=== PATIENT | female | born 1960 | race Caucasian/White ===

== ENCOUNTER 2020-04-29 10:35 | Observation (INO) | payer MEDICAID, SELFPAY ==
[~2020-04-29] VITALS: Ht 160 cm; Wt 81.6 kg
[2020-04-29 10:38] VITALS: BP 134/76
--- NOTE | 2020-04-29 10:43 | NUR ---
Patient ambulated to bed 4. RN evaluating patient at bedside.
--- NOTE | 2020-04-29 10:50 | NUR ---
60 Y/O F C/C RIGHT GROIN PAIN RADIATING TO THE RLE X 0300 HOURS, 10/10 PAIN, PRESSURE SENSATION, NOTHING ALLEVIATES PAIN. DENIES TRAUMA,INJURY. PT PRESENTS WITH RLE SWELLING,WARM TO TOUCH, EUPNIC,AMBULATORY,A/OX4. PER PT NO PREVIOUS HX OF BLOOD CLOTS,OR PREVIOUS SWELLING ON RLE. CMS/ROM WNL ON RLE. NKA. NO HX. NO RX. NO NVD. SIDE RAIL X1.
--- NOTE | 2020-04-29 10:54 | NUR ---
Dr. De Santiago is evaluating the patient at bedside.
--- NOTE | 2020-04-29 11:20 | NUR ---
US AT BEDSIDE
[2020-04-29 11:22] LABS: BASOPHILS # (AUTO) 0.1 K/uL (0.00-0.22); BASOPHILS % (AUTO) 0.7 % (0.0-2.0); EOSINOPHILS # (AUTO) 0.2 K/uL (0-0.4); EOSINOPHILS % (AUTO) 3.1 % (0.0-4.0); HEMATOCRIT 43.1 % (36-48); HEMOGLOBIN 14.7 g/dL (12.0-16.0); LYMPHOCYTES # (AUTO) 1.8 K/uL (2.5-16.5); LYMPHOCYTES % (AUTO) 23.8 % (20.5-51.1); MEAN CORPUSCULAR HEMOGLOBIN 30 pg (27-31); MEAN CORPUSCULAR HGB CONC 34 g/dL (33-37); MEAN CORPUSCULAR VOLUME 88.1 fL (80-94); MONOCYTES # (AUTO) 0.5 K/uL (0.8-1.0); MONOCYTES % (AUTO) 6.2 % (1.7-9.3); NEUTROPHILS # (AUTO) 5.1 K/uL (1.8-7.7); NEUTROPHILS % (AUTO) 66.2 % (42.2-75.2); PLATELET COUNT (AUTO) 186 K/uL (140-450); RED CELL DISTRIBUTION WIDTH 13.9 % (11.6-13.7); WHITE BLOOD COUNT (AUTO) 7.7 K/uL (4.8-10.8)
[2020-04-29 11:36] LABS: PROTHROMBIN TIME 10.4 secs (10.8-13.4)
[2020-04-29 11:38] LABS: ALBUMIN 3.8 g/dL (3.4-5.0); ANION GAP 13.2 (8-16); CARBON DIOXIDE 23.7 mmol/L (21-32); CREATININE 0.8 mg/dL (0.6-1.3); POTASSIUM 3.9 mmol/L (3.5-5.1); TOTAL BILIRUBIN 0.4 mg/dL (0.0-1.0)
--- NOTE | 2020-04-29 11:44 | NUR ---
PT RESTING IN BED, SIDE RAIL X1
[2020-04-29] MEDS ORDERED: NACL 0.9% 1,000 ML IV ONE (12:10)
[2020-04-29] MEDS ORDERED: ENOXAPARIN 100 MG/ML SYR SUBQ ONE (12:10)
--- NOTE | 2020-04-29 12:33 | NUR ---
ADDIE GUNN SWAB DONE , TAKEN TO LAB
[2020-04-29] MEDS: NACL 0.9% 1,000 ML IV SCH (13:41)
[2020-04-29] MEDS ORDERED: ACETAMINOPHEN 325 MG TAB PO PRN (13:45)
[2020-04-29] MEDS ORDERED: HYDROcodone/APAP 5/325 MG 1 TAB TAB PO PRN (13:45)
[2020-04-29] MEDS ORDERED: ONDANSETRON 4 MG/2 ML VIAL IVP PRN (13:45)
[2020-04-29] MEDS ORDERED: MORPHINE SULFATE 4 MG/ML SYR IVP PRN (13:45)
--- NOTE | 2020-04-29 14:50 | NUR ---
SOL EDWARDS - DAUGHTER PHONE [phone]
--- NOTE | 2020-04-29 16:37 | NUR ---
DAUGHTER NOTIFIED OF PT STATUS, PER PT REQUEST
[2020-04-29 16:50] VITALS: BP 118/66
--- NOTE | 2020-04-29 16:50 | NUR ---
TO ADMITTED TO M/S FROM ER VIA [facility]. RECEIVED REPORT FROM CURTIS TAYLOR. BELONGINGS WITH PATIENT.
--- NOTE | 2020-04-29 16:56 | NUR ---
Patient will be admitted to care of NEELA. Admited to MS. Will go to room 107B. Belongings list completed. Report to EBONI ACEVEDO.
--- NOTE | 2020-04-29 18:34 | NUR ---
VSS, AFEBRILE, O2 SAT >92% ON RA. C/O PAIN X1, BUT PT REFUSES TO TAKE AVAILABLE PAIN MEDICATION. PT STATES REPOSITIONING AND ELEVATION ASSISTS WITH PAIN. LABS AND I/O MONITORED. PT CONTINUES ON IV FLUID WITH NO ADVERSE REACTIONS NOTED AND/OR REPORTED. SPOKE WITH PT'S DAUGHTER (SOL), RE: PT'S STATUS. ALL NEEDS MET SINCE ADMIT. PERSONAL BELONGINGS, BEDSIDE TABLE, CALL LIGHT WITHIN REACH. WILL CONTINUE TO MONITOR.
--- NOTE | 2020-04-29 19:30 | NUR ---
Patient's Plan of Care was discussed and reviewed with PROGRAM ASSOCIATE:
--- NOTE | 2020-04-29 19:30 | NUR ---
RECD. RESTING IN BED, AWAKE, A/OX4, RESPIRATION EVEN AND UNLABORED. IV OF NS AT 80 ML/HR INFUSING, RIGHT HAND G22. RIGHT LEG ON A PILLOW. PLEASANT AND CALM. PLAN OF CARE FOR THE SHIFT DISCUSSED. VERBALIZED UNDERSTANDING. DENIES PAIN 0/10.
[2020-04-29] MEDS: APIXABAN 2.5 MG TAB PO SCH (21:26)
--- NOTE | 2020-04-29 21:26 | NUR ---
WATCHING TV. DUE PO MEDICATION GIVEN.
--- NOTE | 2020-04-29 23:15 | NUR ---
IV INFILTRATED, NEW IV LINE INSERTED LEFT HAND G22.
[2020-04-30] VITALS: BP 120/59
--- NOTE | 2020-04-30 01:00 | NUR ---
SLEEPING COMFORTABLY IN BED.
[2020-04-30] MEDS: NACL 0.9% 1,000 ML IV SCH ×2 (02:43→14:41)
--- NOTE | 2020-04-30 03:00 | NUR ---
AMBULATLED TO BR TO VOID, BACK TO BED AFTER VOIDING AND BACK TO SLEEP.
[2020-04-30 06:22] LABS: BASOPHILS % (AUTO) 0.6 % (0.0-2.0); EOSINOPHILS # (AUTO) 0.5 K/uL (0-0.4); EOSINOPHILS % (AUTO) 8.7 % (0.0-4.0); HEMATOCRIT 41.2 % (36-48); LYMPHOCYTES # (AUTO) 2.6 K/uL (2.5-16.5); LYMPHOCYTES % (AUTO) 42.8 % (20.5-51.1); MEAN CORPUSCULAR HEMOGLOBIN 30 pg (27-31); MEAN CORPUSCULAR HGB CONC 34 g/dL (33-37); MEAN CORPUSCULAR VOLUME 89.3 fL (80-94); MONOCYTES # (AUTO) 0.4 K/uL (0.8-1.0); NEUTROPHILS # (AUTO) 2.6 K/uL (1.8-7.7); NEUTROPHILS % (AUTO) 41.9 % (42.2-75.2); PLATELET COUNT (AUTO) 181 K/uL (140-450); RED BLOOD CELL COUNT(AUTO) 4.61 MIL/uL (4.20-5.40); RED CELL DISTRIBUTION WIDTH 14.1 % (11.6-13.7); WHITE BLOOD COUNT (AUTO) 6.1 K/uL (4.8-10.8)
[2020-04-30 06:41] LABS: ALBUMIN 3.3 g/dL (3.4-5.0); ANION GAP 14.4 (8-16); CARBON DIOXIDE 22.5 mmol/L (21-32); CREATININE 0.6 mg/dL (0.6-1.3); POTASSIUM 3.9 mmol/L (3.5-5.1); TOTAL BILIRUBIN 0.5 mg/dL (0.0-1.0)
--- NOTE | 2020-04-30 07:00 | NUR ---
CONDITION REMAIN STABLE. NO COMPLAINT OF PAIN DURING SHIFT. WILL ENDORSE TO AM SHIFT NURSE FOR CONTINUITY OF CARE.
--- NOTE | 2020-04-30 07:30 | NUR ---
RECEIVED REPORT FROM [facility] NURSE, ASSUMED CARE. PT RESTING COMFORTABLY IN BED WITH NO S/S OF PAIN AND/OR DISTRESS AT THIS TIME. PERSONAL BELONGINGS, BEDSIDE TABLE, CALL LIGHT WITHIN REACH. WILL CONTINUE TO MONITOR.
[2020-04-30 08:00] VITALS: BP 115/53
[2020-04-30] MEDS: APIXABAN 2.5 MG TAB PO SCH (08:35)
[2020-04-30] MEDS ORDERED: APIX5TAB PO (12:32)
[2020-04-30 12:52] VITALS: BP 116/60
[2020-04-30 16:00] VITALS: BP 105/51
--- NOTE | 2020-04-30 17:45 | NUR ---
PT DISCHARGED WITH BELONGINGS VIA W/C. DISCHARGE PAPERWORK FILLED OUT AND SIGNED. PICKED UP BY DAUGHTER.
== END 2020-04-30 17:40 | disposition home or self-care (01) ==
LOC: MED 10:35 → INTOOBSV 13:48 → MMU 13:48 → MTU 16:19
PROVIDERS: ADMIT Hospitalist; ATTEND Hospitalist
DX: I82.401 Acute embolism and thrombosis of unspecified deep veins of right lower extremity (principal); Z20.828 Contact with and (suspected) exposure to other viral communicable diseases; Z79.01 Long term (current) use of anticoagulants
CPT/HCPCS: 36415; 80053; 85025; 85610; 85730; 87426; 93971; 96360; 96361; 96372; 99285; G0378; J1650; J7030; Q0092